=== PATIENT | male | born 1965 | race Caucasian/White ===

== ENCOUNTER 2018-06-30 08:57 | Day surgery (SDC) | payer OTHER ==
[~2018-06-30 08:57] MED LIST: ASPI81CH PO; Acetaminophen325 M1; Ativan1 MG PO; BACITO TP; BISM300CH; CEPACOL SORE T1 EACH; CEPH500 PO; CHLO100; CHLO25A PO; CLOZ100 PO; DICY20 PO; DOCU100 PO; FENO54 PO; GAVILAX17 GM PO; HYDACE5 PO; IBUP400 PO; LEVSOD100 PO; LISI5 PO; LORA1 PO; MAALOX ADVANCE1 EACH; METAMUCIL660 GM; METF500C PO; Q-Tussin100 MG/5 M; RANI150 PO; RISP2; RISP2 PO; RISP3 PO; SULTRIDS PO; TRAZ100; UNKNOWN MEDS; Zantac150 MG PO
== END 2018-06-30 10:15 | disposition home or self-care (01) ==
LOC: ORSCMMR 08:57 → ORD 10:00 → ORSCMMR 10:15
PROVIDERS: Internal Medicine Gastroenterology
PROC: 0DB68ZX Excision of Stomach, Via Natural or Artificial Opening Endoscopic, Diagnostic (ICD-10-PCS; principal; 2018-06-30 10:00)
PROC: 0DB48ZX Excision of Esophagogastric Junction, Via Natural or Artificial Opening Endoscopic, Diagnostic (ICD-10-PCS; principal; 2018-06-30 10:00)
DX: R13.14 Dysphagia, pharyngoesophageal phase (principal); B37.81 Candidal esophagitis; R11.2 Nausea with vomiting, unspecified; F20.9 Schizophrenia, unspecified; E11.9 Type 2 diabetes mellitus without complications; E03.9 Hypothyroidism, unspecified; I10 Essential (primary) hypertension; J44.9 Chronic obstructive pulmonary disease, unspecified; F17.210 Nicotine dependence, cigarettes, uncomplicated; Z79.82 Long term (current) use of aspirin; Z79.84 Long term (current) use of oral hypoglycemic drugs; Z79.899 Other long term (current) drug therapy
CPT/HCPCS: 82947; 88305; 88312; 88342; J7120

== ENCOUNTER 2018-09-01 07:52 | Day surgery (SDC) | payer OTHER ==
[~2018-09-01] VITALS: Ht 185.4 cm; Wt 108.4 kg
[~2018-09-01 07:52] MED LIST changes: +CHOL10002 PO; +Prilosec Otc20 MG
--- NOTE | 2018-09-01 08:27 | NUR ---
History, Chart, Medications and Allergies reviewed before start of procedure. Patient States Post-Procedure ride home has been arranged. [employer] TAYLOR AT BEDSIDE.
--- NOTE | 2018-09-01 08:49 | NUR ---
09/01/18 0849 David Anaya PATIENT DETERMINED TO BE ASA APPROPRIATE FOR PROPOFOL SEDATION PRIOR TO START OF PROCEDURE BY DR. Zach Rocha Placed3-LEAD EKG REVIEWED WITH PHYSICIAN PRIOR TO START OF PROCEDURE.Patient to ENDO 1History, Chart, Medications and Allergies reviewed before start of procedure.MONITOR INTACT WITH CONTINUOUS PULSE OXIMETRY AND INTERMITTENT BP.O2 VIA N/C INTACT THROUGHOUT SEDATION/PROCEDURE.
--- NOTE | 2018-09-01 09:21 | NUR ---
PATIENT UP TO BR WITH STANDBY ASSIST ONLY.
== END 2018-09-01 09:38 | disposition home or self-care (01) ==
LOC: ORSCMMR 07:52 → ORD 09:00 → ORSCMMR 09:38
PROVIDERS: Internal Medicine Gastroenterology
PROC: 0DB48ZX Excision of Esophagogastric Junction, Via Natural or Artificial Opening Endoscopic, Diagnostic (ICD-10-PCS; principal; 2018-09-01 09:00)
PROC: 0DB58ZX Excision of Esophagus, Via Natural or Artificial Opening Endoscopic, Diagnostic (ICD-10-PCS; principal; 2018-09-01 09:00)
DX: R13.10 Dysphagia, unspecified (principal); K21.0 Gastro-esophageal reflux disease with esophagitis; F20.9 Schizophrenia, unspecified; E11.9 Type 2 diabetes mellitus without complications; E03.9 Hypothyroidism, unspecified; I10 Essential (primary) hypertension; J44.9 Chronic obstructive pulmonary disease, unspecified; F17.210 Nicotine dependence, cigarettes, uncomplicated; Z79.899 Other long term (current) drug therapy; Z79.82 Long term (current) use of aspirin; Z79.84 Long term (current) use of oral hypoglycemic drugs; Z88.0 Allergy status to penicillin; Z88.8 Allergy status to other drugs, medicaments and biological substances; Z86.010 Personal history of colon polyps
CPT/HCPCS: 82947; 88305; 88312; J7120

== ENCOUNTER 2018-12-20 01:50 | Observation (INO) | payer OTHER ==
[~2018-12-20] VITALS: Ht 185.4 cm; Wt 127.0 kg
[2018-12-20] MEDS ORDERED: DOCU100 PO (02:07)
[2018-12-20] MEDS ORDERED: FENO54 PO (02:07)
[2018-12-20] MEDS ORDERED: Prinivil10 MG PO (02:07)
[2018-12-20] MEDS ORDERED: LEVSOD100 PO (02:07)
[2018-12-20] MEDS ORDERED: Aspirin EC81 MG PO (02:07)
[2018-12-20] MEDS ORDERED: METF500 PO (02:08)
[2018-12-20] MEDS ORDERED: MIRALAX17 GM PO (02:08)
[2018-12-20] MEDS ORDERED: Vitamin D2000 UNIT PO (02:08)
[2018-12-20] MEDS ORDERED: LORA.5 PO (02:09)
[2018-12-20] MEDS ORDERED: CLOZ100 PO (02:09)
[2018-12-20] MEDS ORDERED: CHLO25A PO ×2 (02:09)
[2018-12-20] MEDS ORDERED: Ativan0.5 MG PO (02:10)
[2018-12-20] MEDS ORDERED: ADVIL LIQUI-GE200 MG PO (02:10)
[2018-12-20] MEDS ORDERED: OMEPRAZOLE MAGN20 MG PO (02:10)
[2018-12-20] MEDS ORDERED: IBU400 MG PO (02:11)
[2018-12-20 02:39] LABS: Source, Urine Clean Catch
[2018-12-20 02:41] LABS: Bilirubin, Urine Neg (Neg); Blood, Urine Neg (Neg); Glucose Qualitative, Urine Neg (Neg); Ketones, Urine Neg (Neg); Leukocyte Esterase, Urine Neg (Neg); Nitrite, Urine Neg (Neg); Protein, Urine Neg (Neg); Urobilinogen, Urine NORM (Normal)
[2018-12-20 02:42] LABS: Appearance, Urine Clear (Clear); Color, Urine Yellow (P-Yellow)
[2018-12-20 02:53] LABS: U Amphetamine Screen Not Detected; U Barbituate Screen Not Detected; U Benzodiazapine Screen DETECTED; U Buprenorphine Screen Not Detected; U Cannabinoids Screen DETECTED; U Cocaine Screen Not Detected; U Methadone Screen Not Detected; U Methamphetamine Screen Not Detected; U Opiates Screen Not Detected; U Oxycodone Screen Not Detected; U Phencyclidine Screen Not Detected; U Propoxyphene Screen Not Detected
[2018-12-20 03:38] LABS: BASOPHILS ABSOLUTE AUTO 0.06 K/mm3 (0.00-0.23); BASOPHILS PERCENT AUTO 0 % (0-2); EOSINOPHILS ABSOLUTE AUTO 0.12 K/mm3 (0.00-0.68); EOSINOPHILS PERCENT AUTO 1 % (0-6); Hemoglobin 13.2 g/dL (13.5-17.5); IMMATURE GRAN ABSOLUTE AUTO 0.06 K/mm3 (0.00-0.10); IMMATURE GRAN PERCENT AUTO 0 % (0-1); LYMPHOCYTES ABSOLUTE AUTO 2.21 K/mm3 (0.84-5.20); LYMPHOCYTES PERCENT AUTO 16 % (21-46); MONOCYTES ABSOLUTE AUTO 1.03 K/mm3 (0.16-1.47); MONOCYTES PERCENT AUTO 7 % (4-13); Mean Corpuscular HGB 30.1 pg (26.0-34.0); Mean Corpuscular HGB Conc 33.8 g/dL (31.5-36.5); Mean Corpuscular Volume 89 fL (80-100); Mean Platelet Volume 9.3 fL (9.1-12.4); NEUTROPHILS ABSOLUTE AUTO 10.77 K/mm3 (1.96-9.15); NEUTROPHILS PERCENT AUTO 76 % (41-73); Platelet Count 349 K/mm3 (150-400); RDW Coefficient Variation 13.5 % (11.7-14.2); RDW Standard Deviation 44.5 fL (35.1-46.3); Red Blood Cell Count 4.38 M/mm3 (4.30-5.90); White Blood Cell Count 14.25 K/mm3 (4.00-11.30)
[2018-12-20 03:54] LABS: Ethanol (Alcohol), Blood, Med <3 mg/dL; Salicylate <1.7 mg/dL (2.8-20.0)
[2018-12-20 03:55] LABS: Alanine Aminotransfer (ALT/SGP 17 U/L (12-78); Albumin, Blood 4.2 g/dL (3.4-5.0); Albumin/Globulin Ratio 1.4 (0.8-1.8); Alk Phos 65 U/L (50-136); Anion Gap 7 mmol/L (6-16); Aspartate Aminotrans (AST/SGOT 15 U/L (12-37); Bilirubin, Total 0.4 mg/dL (0.1-1.0); Blood Urea Nitrogen 11 mg/dL (8-24); Bun/Creatinine Ratio 13.6 (12.0-20.0); CO2, Blood 25 mmol/L (21-32); Calcium, Blood 9.1 mg/dL (8.5-10.1); Chloride, Blood 103 mmol/L (98-108); Creatinine, Blood 0.81 mg/dL (0.60-1.20); Globulin, Blood 3.1 g/dL (2.2-4.0); Glomerular Filtration Rate >60 (60-); Glucose, Blood 135 mg/dL (70-99); Potassium, Blood 4.1 mmol/L (3.5-5.5); Sodium, Blood 135 mmol/L (136-145); Total Protein, Blood 7.3 g/dL (6.4-8.2)
[2018-12-20 03:57] LABS: Acetaminophen, Random <2.0 ug/mL (10.0-30.0)
== END 2018-12-23 19:58 ==
LOC: ER 01:50 → EOR 01:51
PROVIDERS: ADMIT Emergency Medicine
DX: F20.3 Undifferentiated schizophrenia (principal); E11.9 Type 2 diabetes mellitus without complications; E03.9 Hypothyroidism, unspecified; K21.9 Gastro-esophageal reflux disease without esophagitis; I10 Essential (primary) hypertension; F17.210 Nicotine dependence, cigarettes, uncomplicated; Z88.0 Allergy status to penicillin; Z88.8 Allergy status to other drugs, medicaments and biological substances; Z79.899 Other long term (current) drug therapy; Z79.82 Long term (current) use of aspirin
CPT/HCPCS: 36415; 80053; 81003; 85025; 99285; G0378; G0480; Q0163; Q3014